=== PATIENT | female | born 1995 | race Caucasian/White ===

== ENCOUNTER 2023-09-08 10:07 | Emergency (ER) | payer BC, SELFPAY ==
[2023-09-08 10:09] VITALS: BP 116/80
[2023-09-08 10:32] VITALS: BP 103/60
[2023-09-08 10:36] VITALS: BMI 26.6
--- NOTE | 2023-09-08 10:36 | EDRN ---
this RN entered the pts room to assess the pt, the pt appeared anxious, this RN explained to the pt that this RN will assess her and place her on the monitor to monitor her heart rhythm, Sp02 and blood pressure along with RR, the pt was agreeable
and compliant with this, the pts VS are WNL, blood pressure 103/60 (74), NSR in the 70's, palpable pulses, no edema present, Sp02 100% on RA, no s/s of respiratory distress, RR 15, the pt has an N95 on currently, this RN notified the pt and the pts
father that a provider would be in to see the pt shortly, the pts father asked this RN, 'Is there a female provider on today?', this RN told the pts father that this RN would have to check, the pts father then stated, 'It's just her preference she
prefers a female', this RN notified the pt and the pts father that this RN would see what she could do as far as having a female provider see the pt, the pt is resting in stretcher in the lowest position, side rails up x2, call benson within reach,
HOB elevated, will continue to monitor the pt closely
--- NOTE | 2023-09-08 10:49 | EDRN ---
this RN spoke to Beata Pugh NP and asked her if she could see the pt due to the pt requesting a female provider, the provider will be in to see the pt shortly, this RN notified the pt and the pts father that a female provider would be in to see her
--- NOTE | 2023-09-08 10:56 | EDRN ---
Beata Pugh [employer] PAINTER APPRENTICE currently at the pts bedside speaking with the pt and the pts father
[2023-09-08 11:00] VITALS: BP 105/61
[2023-09-08 11:07] LABS: Glucose - Point of Care 100 mg/dl (70-99)
--- NOTE | 2023-09-08 11:08 | ED.GENMED ---
History of Present Illness
General
Chief Complaint: Fainting Sensation
Source: patient and family (Father at bedside)
Exam Limitations: none
Time Seen by Provider: 09/08/23 10:45
Nursing documentation reviewed up to this point in time: agreed with
Travel History
Have you had any contact with someone who has COVID-19?: No
Do you have any symptoms of coronavirus? Fever > 100 degrees, chills, cough, shortness of breath, sore throat, loss of taste or smell, muscle aches, or headache?: Yes
Symptoms:: Friday
History of Present Illness
History of Present Illness:
28-year-old female tested Covid positive 3 days ago after a with large family gathering. Did Covid test next day after feeling faint, sore throat, general aches, intermittent tingling in right hand and forearm, bitter taste in mouth, fever
max 102 two days ago. Has been taking Tylenol and Advil.
She no longer has sore throat, tingling in R hand, joint pains and her fever is gone. Today had an episode where she felt faint, her vision got blurred and hearing started to diminish. Dad at home with her called EMS.
Her symptoms from earlier today are gone.
Past History
Past History
ED Past Medical History: None
ED Past Surgical History: None
Social History
Tobacco: Non-smoker
Alcohol: None
Personal: Single
Living: with family
Employment: Employed
Review of Systems
Review of Systems
Allergies reviewed?: Yes
All Other Systems: ROS reviewed and negative except as documented in HPI and ROS
Constitutional: Reports fever and fatigue
EENT: Reports sore throat
Respiratory: Denies cough or trouble breathing
Cardiac: Reports diaphoresis (broke out in sweat last night); Denies chest pain, palpitations or syncope
ABD/GI: Denies abdominal pain, nausea, vomiting or diarrhea
: Denies dysuria, difficulty voiding or urgency
Musculoskeletal: Reports other (general body aches have improved)
Skin: Reports no symptoms
Neurological: Reports no symptoms
Psychiatric: Reports anxiety
Phy Exam
Physical Exam
Physical Exam:
GENERAL: No acute distress. A&Ox3.
CONSTITUTIONAL: Afebrile.
EYES: PERRL, conjunctivae normal
Neck: Supple
ENMT: moist mucus membranes, Pharynx nl, TMs normal
RESPIRATORY: Regular respirations, nonlabored, lungs clear.
CARDIOVASCULAR: Regular rate and rhythm, no murmurs, no rubs.
GI: Soft, nontender, normal BS
MUSCULOSKELETAL: Moves with ease. Well perfused.
SKIN: Warm, dry, pink
PSYCH: Mildly anxious, sometimes tearful mood and affect. Well kept, interactive and appropriate
NEUROLOGIC: Awake, alert and oriented. No focal neurological deficits
Course
Orders/Labs/Results
Orders:
Orders
09/08/23 10:44
EKG [Electrocardiogram (*1)] Urgent
Reason for Study: Vertigo / Dizzy
EKG- Treatment ONCE
Abnormal Lab Results
09/08/23
11:06
POC Glucose 100 H mg/dl
(70-99)
Vital Signs
Initial and Last Documented VS:
Initial Vital Signs
Temp Pulse Resp BP Pulse Ox
98.2 F 90 20 116/80 100
09/08/23 10:09 09/08/23 10:09 09/08/23 10:09 09/08/23 10:09 09/08/23 10:09
Last Documented Vital Signs
Temp Pulse Resp BP Pulse Ox
97.9 F 70 16 105/61 98
09/08/23 11:19 09/08/23 11:19 09/08/23 11:19 09/08/23 11:19 09/08/23 11:19
MDM/Problems Addressed
MDM/Problems Addressed:
28-year-old female tested Covid positive 3 days ago after a with large family gathering. Did Covid test next day after feeling faint, sore throat, general aches, intermittent tingling in right hand and forearm, bitter taste in mouth, fever
max 102 two days ago. Has been taking Tylenol and Advil.
She no longer has sore throat, tingling in R hand, joint pains and her fever is gone. Today had an episode where she felt faint, her vision got blurred and hearing started to diminish. Dad at home with her called EMS.
Her symptoms from earlier today are gone.
Afebrile, NAD, tearful admitting to feeling anxious about being sick
EKG: NSR
11:13 AM
Fingerstick blood sugar 100
Patient reassured that her symptoms are simply from COVID, most of her symptoms are gone which is a good sign, she says she broke out in a drenching sweat last night, this was most likely her fever breaking
Encouraged to drink plenty of fluid to stay hydrated, continue Tylenol or ibuprofen
Work note for off work the rest of this week
She and her father are comfortable going home.
No indication for further testing
*Critical Care Note
Total Time (30-74mins, 75-104mins- exclusive of procedures): Not Applicable
ED Attending Note
-
Portions of this chart may have been created with voice recognition software.� Occasional wrong word or��sound alike� substitutions may have occurred due to the inherent limitations of voice recognition software.
Discharge Plan
Departure
Patient Disposition: Home (Routine Discharge)
Date of Disposition: 09/08/23
Time of Disposition: 11:05
Patient with high blood pressure during this ER visit?: No
Condition: Good
Discharge Problem:
COVID-19
Instructions: Near Fainting (DC), COVID-19 (DC)
Prescriptions:
No Action
No Current Medications
0
Referrals:
Your, Doctor [Other] - As needed
Stand Alone Forms: Return to Work
Activity Restrictions/Additional Instructions:
As we discussed, your symptoms are consistent with COVID. Your blood sugar was normal.
Drink at least eight 8 ounce glasses of water or fluid daily to stay hydrated.
Rest for the rest of the week, you can return to work on Friday.
Continue Tylenol or ibuprofen as needed for fever or body aches.
Interventions
Interventions:
*Risk Screen - Suicide Last Done: 09/08/23 10:36
*General Assessment Last Done: 09/08/23 10:36
*Neglect/Abuse Screening Last Done: 09/08/23 10:36
ED- Fall Risk Assessment Last Done: 09/08/23 10:36
*ED COVID-19 Vaccine History Last Done: 09/08/23 10:09
*Nursing Disposition Last Done: 09/08/23 11:19
ED- Cardiac Assessment Last Done: 09/08/23 10:36
ED- Neurological Assessment Last Done: 09/08/23 10:36
Discharge Date and Time
Discharge Date/Time: 09/08/23 11:20
Print Language: DOMINICAN
[2023-09-08 11:19] VITALS: BP 105/61
== END 2023-09-08 11:20 | disposition home or self-care (01) ==
LOC: EMR 10:07
PROVIDERS: EMERGENCY PHYSICIAN Emergency Medicine; FAMILY PHYSICIAN Internal Medicine
DX: U07.1 COVID-19 (principal)
CPT/HCPCS: 99283; 82962; 93005